=== PATIENT | female | born 1965 | race Caucasian/White ===

== ENCOUNTER → 2016-12-09 | Outpatient (CLI) | payer OTHER | LOC: FIMAGING 08:52 | PROVIDERS: ATTEND Obstetrics & Gynecology Gynecology | DX: Z12.31 Encounter for screening mammogram for malignant neoplasm of breast (principal) | CPT/HCPCS: G0202 ==

== ENCOUNTER → 2017-12-20 | Outpatient (CLI) | payer OTHER | LOC: FIMAGING 12:55 | PROVIDERS: ATTEND Obstetrics & Gynecology Gynecology | DX: Z12.31 Encounter for screening mammogram for malignant neoplasm of breast (principal) ==

== ENCOUNTER 2018-04-30 13:53 | Emergency (ER) | payer OTHER ==
--- NOTE | 2018-04-30 14:59 | EDPHY ---
General Time Seen by Provider: 04/30/18 14:59 Narrative: CLINICAL IMPRESSION: Left palm laceration ASSESSMENT/PLAN: Patient is a 53-year-old female with a history of Vineet's thyroiditis who presents for evaluation of left palm laceration sustained yesterday at 10:00 a.m.. Patient is not toxic appearing, she is in no distress. Physical examination reveals 1 cm laceration to the left hypothenar eminence, well- approximated at rest. There is no evidence of deep structure involvement, neurovascular compromise, foreign body, or bony involvement. The wound was not contaminated, tetanus status was up-to-date. Secondary to the wound being open for greater than 24 hrs I did not close this wound. The wound was copiously irrigated and then dressed, hemostasis was achieved. Wound care instructions discussed with patient, she will keep dressing in place for the next 24-48 hours. She is well established with he PCP and will call to schedule an appointment for wound check. Return precautions discussed- she will return for increased pain, signs of infection, fever, vomiting, if the wound opens or for any other concerns. Patient verbalizes understanding and she is in agreement with this plan. DIFFERENTIAL DIAGNOSIS: includes but not limited to laceration of tendon or vascular structure, underlying fracture, laceration with retained FB CHIEF COMPLAINT: Left hand Laceration HPI: Patient is a 53-year-old female with a history of Vineet's thyroiditis who presents to the emergency department after sustaining a laceration to her left palm yesterday morning at 10:00 a.m.. Patient reports she was working on a project where she accidentally cut her left palm with an exacto knife. She was at her friend's house who is a turkey roll maker, they copiously irrigated the wound and she attempted to close it with Dermabond. When the patient woke up this morning and took off the dressing the Dermabond came off and the wound started to bleed mildly. She denies any numbness or tingling of the hand or digits, she denies any other injury or complaint. She was able to get the bleeding under control. Patient is right-hand dominant, she is up-to-date on her tetanus status. PAST MEDICAL HISTORY: Vineet's thyroiditis Family history: Noncontributory Social History: Occasional alcohol, denies illicit drug use or cigarette smoking REVIEW OF SYSTEMS: All other systems negative Constitutional: No fever, no chills Musculoskeletal: No deformity, no joint pain Skin: Laceration. Neurological: No sensory loss or weakness PHYSICAL EXAM: General Appearance: Alert, oriented, appropriate for age, cooperative, NAD, well hydrated, non-toxic appearing, VSS, no hypoxia. Neurological: Alert and oriented x 3 Skin: 1 cm laceration along the hypothenar eminence of the left palm Upper Extremities: Intact radial pulses, Full range of motion intact, laceration as mentioned above. Full range of motion and mobility of all digits , 2 point discrimination is intact at each digit. The hand compartment is soft. Lower Extremities: Intact distal pulses, No edema, No tenderness, No cyanosis, full range of motion intact, No calf tenderness bilaterally. MEDICAL DECISION MAKING: Patient was seen independently. Secondary supervising physician at time of evaluation was Dr. Comer, I discussed this case with him however he did not formally evaluate this patient. Diagnosis: Left palm laceration. New, requires workup Summary: See assessment and plan for summary of ED visit Clinical lab tests: Not applicable. Independent visualization of images, tracing, or specimens not applicable. Decision to obtain medical records or history from someone other than the patient: No Review / Summarize previous medical records; no Discussed patient with another provider: yes, Dr. Comer. - History Smoking Status: Never smoked - Objective Vital Signs: Initial Vital Signs Temperature (C) 36.8 C 04/30/18 14:10 Heart Rate 75 04/30/18 14:10 Respiratory Rate 16 04/30/18 14:10 Blood Pressure 128/75 H 04/30/18 14:10 O2 Sat (%) 98 04/30/18 14:10 O2 Delivery Mode Room Air Allergies/Adverse Reactions: amoxicillin Allergy (Verified 12/08/14 10:14) Home Medications: Medication Instructions Recorded Lexapro 04/30/18 [employer] Thyroid 04/30/18 Progesterone 04/30/18 Departure - Departure Disposition: Home, Routine, Self-Care Clinical Impression: Hand laceration Qualifiers: Encounter type: initial encounter Foreign body presence: without foreign body Laterality: left Qualified Code(s): S61.412A - Laceration without foreign body of left hand, initial encounter Condition: Good Instructions: Laceration (ED) Additional Instructions: DISCHARGE INSTRUCTIONS FROM YOUR DOCTOR Thank you for visiting our emergency department today. Please keep in mind that discharge from the emergency department does not mean that there is nothing wrong - it simply means that we have not identified an emergency condition that requires further evaluation or treatment in the hospital. You should always plan to follow up with primary care for re-evaluation of your condition in the next 2-3 days. Keep wound clean and dry for 24-28 hours. Then remove dressing, clean at least twice daily or when soiled with soap and water, apply antibiotic ointment and dressing. Do not soak the wound while it is healing. Tylenol every 4-6 hours as directed as needed for pain. Do not exceed 4000 mg in 24 hours. Ibuprofen as directed every 6-8 hours with food as needed for pain. Stop for stomach upset. Do not exceed 2400 mg in 24 hours. Continue your regular medications as prescribed. Schedule a follow-up visit with your primary care physician or the emergency department for a wound check if you have any concerns Return for signs of wound infection ie: redness, swelling, drainage, foul odor, red streaks, fever, chills, pain, bleeding, if the stitches pop, if the wound opens or for any other new, worsening or worrisome symptoms. People present with illnesses and injuries in different ways, and it is always possible that we have missed something. You may always return for re-evaluation if symptoms worsen or if they are not improving or if you develop new/different symptoms. Again, thank you for choosing our emergency department. We hope that you feel better. Referrals: NONE *PRIMARY CARE P,. [Primary Care Provider] - As per Instructions (Please follow-up with your primary care provider)
[2018-04-30 15:39] VITALS: BP 124/80
== END 2018-04-30 15:37 | disposition home or self-care (01) ==
DX: S61.412A Laceration without foreign body of left hand, initial encounter (principal); W26.0XXA Contact with knife, initial encounter; Y93.89 Activity, other specified; Y92.9 Unspecified place or not applicable; Y99.9 Unspecified external cause status